=== PATIENT | male | born 1985 ===

== ENCOUNTER 2021-09-14 06:12 | Emergency (ER) | payer OTHER ==
[2021-09-14] MEDS ORDERED: LIDOCAINE VISCOUS 2% ORAL/TOP 15 ML UNIT-DOSE CUP MM ONE ×2 (06:38→06:40)
[2021-09-14 06:44] VITALS: BP 127/80; PULSE 95; TEMP 98.9; BMI 23.3
[2021-09-14] MEDS ORDERED: LIDOCAINE VISCOUS 2% ORAL/TOP 15 ML UNIT-DOSE CUP ONE (06:52)
[2021-09-14] MEDS ORDERED: KETOROLAC TROMETHAMINE 30 MG/1 ML VIAL IM ONE (06:53)
[2021-09-14] MEDS ORDERED: KETOROLAC TROMETHAMINE 30 MG/1 ML VIAL ONE (06:56)
[2021-09-15 19:06] LABS: SARS-CoV-2 NAA Detected (Not Detected)
== END 2021-09-14 07:15 | disposition home or self-care (01) ==
LOC: JER 06:12
PROC: 3E0233Z Introduction of Anti-inflammatory into Muscle, Percutaneous Approach (ICD-10-PCS; principal; 2021-09-14)
DX: B34.9 Viral infection, unspecified (principal); Z11.52 Encounter for screening for COVID-19
CPT/HCPCS: 87804; 87807; 99283-25; C9803; U0003; U0005